=== PATIENT | female | born 1940 | race African-American/Black ===

== ENCOUNTER 2020-06-23 00:13 | Inpatient (IN) | payer MEDICARE ==
[~2020-06-23] VITALS: Ht 170.2 cm; Wt 66.2 kg
[2020-06-23 00:18] VITALS: BP 140/95
[2020-06-23 00:21] VITALS: BP 140/95
[2020-06-23 00:51] LABS: INFLUENZA A ANTIGEN Negative (Negative); INFLUENZA B ANTIGEN Negative (Negative)
[2020-06-23 00:52] LABS: HEMATOCRIT 37.3 % (37.0-47.0); HEMOGLOBIN 12.2 gm/dL (12.0-15.0); MCH 29.1 pg (26.0-34.0); MCHC 32.8 g/dL (28.0-37.0); MCV 88.7 fL (80.0-100.0); MPV 6.7 fl. (7.2-11.1); NUCLEATED RBCS 0 /100WBC; PLATELET COUNT* 210 thou/uL (150-400); RDW-CV 13.4 % (10.5-14.5); WBC 5.4 thou/uL (4.0-11.0)
[2020-06-23 01:06] LABS: CALCIUM 9.3 mg/dL (8.5-10.1); POTASSIUM 3.8 mmol/L (3.5-5.1)
[2020-06-23 01:08] LABS: APTT 22.8 Seconds (25.0-31.3); INR 1.1; PROTIME 11.2 Seconds (9.20-11.50)
[2020-06-23 01:11] LABS: ABSOLUTE BASOPHILS 0.1 thou/uL (0.0-0.2); ABSOLUTE LYMPHOCYTES 2.1 thou/uL (0.8-5.3); ABSOLUTE MONOCYTES 0.6 thou/uL (0.0-1.2); ABSOLUTE NEUTROPHILS 1.7 thou/uL (1.6-8.1); LARGE PLATELETS OCCASIONAL; PLATELET ESTIMATE ADEQUATE; TOXIC GRANULATION 1+
[2020-06-23 01:16] LABS: TOTAL BILIRUBIN 0.4 mg/dL (<0.1-1.0); TOTAL PROTEIN 7.4 g/dL (6.4-8.2)
[2020-06-23 07:00] VITALS: BP 115/60
[2020-06-23 11:00] VITALS: BP 140/84
--- NOTE | 2020-06-23 12:51 | EKG ---
[place] [address] ELECTROCARDIOGRAM REPORT Name: AZULDIEUDONNEHARJEET Room: [place] [address] ADM IN [facility].#: [id number] Admission: 06/23/20 Attend Phys: Pierre Pérez Discharge: Date of : 42 Date of Service: 06/23/20 0009 Report #: [id number] THIS REPORT FOR: //name// [facility] ED Test Date: 2020-06-23 Test Time: 00:09:55 Pat Name: LAURIE LIANG Department: Room: [facility] Gender: F Division Director: [place] : 1940 Requested By: Mickey Eden Order Number: [id number] MD: Chris Wasserman Measurements Intervals [place] Rate: 110 P: 88 NM: 195 QRS: 83 QRSD: 60 T: 81 QT: 321 QTc: 435 Interpretive Statements Sinus tachycardia Right atrial enlargement Consider right ventricular hypertrophy Artifact in lead(s) II,aVR,aVF,V1,V2,V3,V4,V5,V6 No previous ECG available for comparison Electronically Signed On 06-23-2020 12:51:26 PLASTIC PRESS OPERATOR by Chris Wasserman [email or web address] <ELECTRONICALLY SIGNED> By: Chris Wasserman MD, FACC 06/23/20 1251 0009 0009 Chris Wasserman MD, FACC /EPI
[2020-06-23 14:59] VITALS: BP 166/92
[2020-06-23] MEDS ORDERED: LISINOPRIL-HCT1 EACH PO (15:26)
[2020-06-23] MEDS ORDERED: LIPITOR 20 MG T20 M1 PO (15:27)
[2020-06-23] MEDS ORDERED: BREO ELLIPTA 11 EACH INH (15:28)
[2020-06-23] MEDS ORDERED: ALPRAZOLAM XR3 MG PO (15:29)
[2020-06-23 18:45] VITALS: BP 138/90
[2020-06-24] VITALS: BP 116/59
[2020-06-24 01:30] VITALS: BP 124/85
--- NOTE | 2020-06-24 01:30 | NUR ---
RECEIVED REPORT FROM ER WHERE PT HAS BEEN BOARDING. TO ROOM PER BED, NO DISTRESS NOTED. O2 ON AT 2L/NC, NO SOA NOTED. TELEMETRY APPLIED SHOWING ST. SEE ADMISSION ASSESSMENT AND HX. WILL CONT TO MONITOR AND ASSIST NEEDED.
[2020-06-24 01:35] VITALS: BP 116/59
[2020-06-24 05:11] LABS: HEMATOCRIT 37.4 % (37.0-47.0); HEMOGLOBIN 12.2 gm/dL (12.0-15.0); MCH 28.9 pg (26.0-34.0); MCHC 32.7 g/dL (28.0-37.0); MCV 88.4 fL (80.0-100.0); MPV 7.4 fl. (7.2-11.1); RBC 4.23 mil/uL (4.20-5.00); RDW-CV 13.5 % (10.5-14.5); WBC 3.2 thou/uL (4.0-11.0)
[2020-06-24 07:00] LABS: ALBUMIN 3.9 g/dL (3.4-5.0); MAGNESIUM 1.8 mg/dL (1.8-2.4); POTASSIUM 3.8 mmol/L (3.5-5.1); TOTAL BILIRUBIN 0.4 mg/dL (<0.1-1.0); TOTAL PROTEIN 7.4 g/dL (6.4-8.2)
[2020-06-24 07:32] LABS: TROPONIN-I LEVEL 0.07 ng/mL (<0.06)
[2020-06-24 07:45] VITALS: BP 117/84
--- NOTE | 2020-06-24 10:07 | NUR ---
cm completed the initial assessment to discuss d/c planning. pt a&o. pt active and independent w/adls. pt has 2 sons that are involved in pt life and assist where needed. pt lives alone, pt denies hx w/hh or snf. pt uses 2 inhalers at home. cm to cont to follow.
--- NOTE | 2020-06-24 12:54 | 2DMMODE ---
[place] [address] 2 D/M-MODE ECHOCARDIOGRAM Name: DIEUDONNE LIANGHARJEET Room: [address] IN .R.#: [id number] Admission: 06/23/20 Attend Phys: Pierre Pérez Discharge: Date of : 42 Date of Service: 06/24/20 1254 Report #: [id number] THIS REPORT FOR: cc: Leanne Carlson MD, Karla L. MD Blick,Daryl Banerjee MD [facility] ~ APPROVED REPORT Study performed: 06/24/2020 10:51:37 EXAM: Comprehensive 2D, Doppler, and color-flow Echocardiogram Patient Location: Bedside BSA: 1.81 Other Information Study Quality: Technically Limited Indications COPD Dyspnea 2D Dimensions IVSd: 9.78 (7-11mm) LVOT Diam: 22.04 (18-24mm) LVDd: 31.43 mm PWd: 9.50 (7-11mm) Ascending Ao: 27.39 (22-36mm) LVDs: 25.18 (25-40mm) Aortic Root: 28.51 mm Volumes Left Atrial Volume (Systole) LA ESV Index: 14.40 mL/m2 Aortic Valve AoV Peak Ryan.: 1.49 m/s AO Peak Gr.: 8.89 mmHg LVOT Max P.42 mmHg AO Mean Gr.: 5.26 mmHg LVOT Mean P.80 mmHg LVOT Max V: 1.36 m/s AO V2 VTI: 25.91 cm LVOT Mean V: 0.90 m/s MICHELLE (VTI): 3.52 cm2 LVOT V1 VTI: 23.88 cm Mitral Valve E/A Ratio: 0.49 [place] [address] 2 D/M-MODE ECHOCARDIOGRAM Name: LAURIE LIANG Room: [address] IN M.R.#: [id number] Admission: 06/23/20 Attend Phys: Pierre Pérez Discharge: Date of : 42 Date of Service: 06/24/20 1254 Report #: [id number] MV Decel. Time: 219.63 ms MV E Max Ryan.: 0.48 m/s MV PHT: 63.69 ms MVA (PHT): 3.45 cm2 TDI E/Lateral E': 5.33 E/Medial E': 6.00 Medial E' Ryan.: 0.08 m/s Lateral E' Ryan.: 0.09 m/s Pulmonary Valve PV Peak Ryan.: 0.73 m/s PV Peak Gr.: 2.11 mmHg Tricuspid Valve RAP Estimate: 5.00 mmHg TR Peak Gr.: 19.36 mmHg RVSP: 24.36 mmHg PA Pressure: 24.36 mmHg Left Ventricle The left ventricle is normal size. There is normal left ventricular wall thickness. Left ventricular systolic function is normal. The left ventricular ejection fraction is within the normal range. Right Ventricle The right ventricle is normal size. The right ventricular systolic function is normal. Atria The left atrium size is normal. The right atrium size is normal. Aortic Valve The aortic valve is not well visualized. No aortic regurgitation is present. There is no aortic valvular stenosis. Mitral Valve The mitral valve is normal in structure. Trace mitral regurgitation. No evidence of mitral valve stenosis. Tricuspid Valve The tricuspid valve is normal in structure. Trace tricuspid regurgitation. Pulmonic Valve Pulmonic valve is not well visualized. There is no pulmonic [place] [address] 2 D/M-MODE ECHOCARDIOGRAM Name: LAURIE LIANG Room: [address]#: [id number] Admission: 06/23/20 Attend Phys: Pierre Pérez Discharge: Date of : 42 Date of Service: 06/24/20 1254 Report #: [id number] Great Vessels The aortic root is normal in size. IVC is normal in size and collapses >50% with inspiration. Pericardium There is no pericardial effusion. <Conclusion> Left ventricular systolic function is normal. The left ventricular ejection fraction is within the normal range. <ELECTRONICALLY SIGNED> By: Daryl Espino MD, FACC 06/24/20 1254 1254 1254 Daryl Espino MD, FACC /INF
--- NOTE | 2020-06-24 13:43 | CON ---
[address] [address] CONSULTATION Name: GREGG LIANG Room: [address] IN M.R.#: [id number] Admission: 06/23/20 Attend Phys: Pierre Suggs, Discharge: Date of : 42 Report #: [id number] THIS REPORT FOR: //name// cc: Leanne Carlson MD, Karla L. MD ~ DATE OF SERVICE: 06/24/2020 HISTORY OF PRESENT ILLNESS: The patient is a 79-year-old single black female who I was asked to see in the hospital after she complained of chest pain. The patient has a long history of COPD and uses inhalers. She is not very active at this time. She has been told she has had a heart murmur, but has never seen a automatic vulcanizing lead operator. She has had pulmonary function studies done in the past. She currently sees a community service aide. Recently, she has been more shortness of breath. She finally came to the Emergency Room 2 days ago. She has been coughing. Denied any edema or fever. She also notes occasional chest pressure in left side of her chest when she becomes short of breath. It occasionally goes into her left arm. It improves when she belches. She notes occasional rapid heartbeat, but denies any recent syncope. She has felt fatigued recently. PAST MEDICAL HISTORY: She has had a cyst removed from her back. She has a history of hypertension and hyperlipidemia. MEDICATIONS: On admission consisted of a blood pressure pill and cholesterol medications. ALLERGIES: SHE HAS AN ALLERGY TO PENICILLIN. FAMILY HISTORY: Her mother had heart disease. SOCIAL HISTORY: She is , [place] apartment in [place] Quit smoking 50 years ago. Rarely drinks alcohol. REVIEW OF SYSTEMS: She has no history of stroke, although she does have occasional numbness of her left arm and left leg. No history of liver disease, kidney disease, cancer, chronic skin condition or psychiatric illness. PHYSICAL EXAMINATION: GENERAL: Revealed an elderly female lying in bed. She appeared in no distress. VITAL SIGNS: Blood pressure 130/70, pulse is 80, and she is afebrile. HEENT: She was anicteric. Conjunctivae pink. Mucous membranes moist. NECK: Veins do not appear distended. No carotid bruits. CHEST: Revealed expiratory wheezes. CARDIOVASCULAR: Regular rate and rhythm, grade 3 holosystolic murmur at the apex. ABDOMEN: Soft. EXTREMITIES: Had no edema. Posterior tibial pulse 2+ [place] [address] CONSULTATION Name: LAURIE LIANG Room: [address]#: [id number] Admission: 06/23/20 Attend Phys: Pierre Suggs, Discharge: Date of : 42 Report #: [id number] SKIN: Cool and dry. NEUROLOGIC: Nonfocal. RADIOLOGICAL DATA: Her ECG on admission showed sinus tachycardia. There was no significant ST or T-wave change noted. Her workup in the Emergency Room, she had a portable chest x-ray showed normal heart size and clear lung hernadez. She had a CT scan of the chest using contrast that showed no pulmonary embolus, renal cyst or pulmonary scarring. LABORATORY WORK: Sodium 134 and creatinine 1.0. Her troponin was 0.32. BNP 27. D-dimer 0.54. White blood cell count 3.2 and hematocrit 37.4. IMPRESSION AND RECOMMENDATIONS: 1. Chronic obstructive pulmonary disease. 2. Borderline troponin. Atypical chest pain. No ECG changes. Suspect related to pulmonary disease. Would recommend an echocardiogram. I would consider an aspirin a day. 3. Occasional numbness of her left arm and left leg. Suspect neuropathy. 4. Previous tobacco abuse. <ELECTRONICALLY SIGNED> By: Daryl Espino MD, FACC 06/24/20 1343 0843 [id number] Espino MD, FACC /nt
[2020-06-24 14:30] VITALS: BP 122/81
--- NOTE | 2020-06-24 17:54 | NUR ---
ASSESSMENT DOCUMENTED. MEDS GIVEN PER E-MAR. IV PATENT. PT REPORTED HAVING A HEADACHE BUT RESOLVED AFTER BLOOD PRESSURE MEDS. PT ON ROOM AIR THIS SHIFT.
[2020-06-24 20:00] VITALS: BP 88/58
[2020-06-25] VITALS: BP 114/63
[2020-06-25 04:00] VITALS: BP 124/71
[2020-06-25 05:35] LABS: CHOLESTEROL 220 mg/dL (<200); HDL CHOLESTEROL 104 mg/dL (>40); LDL CHOLESTEROL 108 mg/dL (<100); SERUM ASSESSMENT Clear; TC:HDL 2.1 Ratio (Not establshd); TRIGLYCERIDE 42 mg/dL (<150); VLDL 8 mg/dL (<40)
[2020-06-25 07:45] VITALS: BP 121/82
--- NOTE | 2020-06-25 09:39 | EKG ---
[place] [address] ELECTROCARDIOGRAM REPORT Name: LAURIE LIANG Room: [address] ADM IN M.R.#: [id number] Admission: 06/23/20 Attend Phys: Pierre Pérez Discharge: Date of : 42 Date of Service: 06/25/20 0832 Report #: [id number] THIS REPORT FOR: //name// [facility] Test Date: 2020-06-25 Test Time: 08:32:04 Pat Name: LAURIE LIANG Department: Room: [address] Gender: F Sap Consultant: : 1940 Requested By: Daryl Espino Order Number: [id number] Reading MD: Chris Wasserman Measurements Intervals [place] Rate: 87 P: 77 ND: 180 QRS: 72 QRSD: 67 T: 79 QT: 364 QTc: 438 Interpretive Statements Sinus rhythm Right atrial enlargement Consider right ventricular hypertrophy ST elevation, consider early repolarization compared to ECG 06/23/2020 00:09:55 ST (T wave) deviation now present Sinus tachycardia no longer present Electronically Signed On 06-25-2020 9:39:13 ZIGZAG TUNNEL ELASTIC OPERATOR by Chris Wasserman [email or web address] <ELECTRONICALLY SIGNED> By: Chris Wasserman MD, FACC 06/25/2039 1 1 Chris Wasserman MD, FAC /EPI
[2020-06-25 12:00] VITALS: BP 133/72
--- NOTE | 2020-06-25 14:53 | NUR ---
cm discuss home health w/pt. [facility]. [facility] stated they are able to accept pt with a tentative d/c date of 06/26/20. fax orders, h&p, [facility] [phone].
[2020-06-25 17:29] VITALS: BP 116/72
--- NOTE | 2020-06-25 19:30 | NUR ---
ASSESSMENT DOCUMENTED. MEDS GIVEN PER E-MAR. IV PATENT. NO REPORTS OF PAIN THIS SHIFT. NEW IV STARTED BY INFUSION NURSE. PT REPORTED COUGHING, NOTIFIED, ORDERS RECIEVED.
[2020-06-25 20:00] VITALS: BP 125/74
[2020-06-26] VITALS (7 sets, daily range): BP systolic 103–130; BP diastolic 53–80
[2020-06-26] MEDS ORDERED: BROVANA15 MCG/2 M INH (07:50)
[2020-06-26] MEDS ORDERED: MUCUS RLF DM E1 EACH PO (07:50)
[2020-06-26] MEDS ORDERED: PREDNISONE 10 M10 MG PO (07:50)
[2020-06-26] MEDS ORDERED: LEVOFLOXACIN500 MG PO (07:50)
[2020-06-26] MEDS ORDERED: LEVALBUTER0.63 MG/3 INH (07:50)
[2020-06-26] MEDS ORDERED: BENZONATATE100 MG PO (07:50)
[2020-06-26] MEDS ORDERED: PULMICORT0.5 MG/2 M INH (07:50)
[2020-06-26] MEDS ORDERED: NEBULIZER MISCELL (07:51)
--- NOTE | 2020-06-26 13:30 | NUR ---
Anticipate dc tomorrow. Plan home with [facility]
[2020-06-27] VITALS: BP 109/60
[2020-06-27 04:00] VITALS: BP 109/51
--- NOTE | 2020-06-27 07:30 | NUR ---
ASSUMED PT'S CARE @ 1900. PT ALERT AND ORIENTED. VSS ON RA. MEDS GIVEN PER EMAR. PT DENIED PAIN THIS SHIFT. NPO AFTER MIDNIGHT. EGD TODAY. SAW DR'S NOT TO DC LOVENOX AND ASPIRIN LATER IN THE SHIFT. LOVENOX WAS ALREADY GIVEN BEGINNING OF SHIFT IT WAS NOT DC'D. PASSED ON TO DAY RN. PAGED GI DOC TO UPDATE ABOUT LOVENOX. NURSING HAVE NOT HEARD BACK. WILL CONTINUE TO MONITOR.
[2020-06-27 08:00] VITALS: BP 121/63
--- NOTE | 2020-06-27 13:08 | NUR ---
Anticipate dc tomorrow. Pt to have EGD today, GI following. Plan is home with [facility] at ma.
[2020-06-27 18:46] VITALS: BP 120/62
[2020-06-27 20:00] VITALS: BP 103/75
--- NOTE | 2020-06-28 04:56 | NUR ---
ASSESSMENT: PT REMAIN ALERT AND ORIENT TIMES FOUR. PT STATE THAT SHE FEELS SO MUCH BETTER POST ESOPHOGEAL DIALATION. COUGHING HAS DECREASED. PT SLEPT MOST OF THE NIGHT. DENIES PAIN, SOB, AND N/V. POSSIBLE DC TO HOME TODAY. GOOD PROGRESS TOWARDS DC GOALS, WILL CONTINUE TO MONITOR.
[2020-06-28] MEDS ORDERED: PROTONIX40 M2 PO (07:34)
[2020-06-28 07:50] VITALS: BP 140/65
[2020-06-28 09:27] VITALS: BP 140/65
[2020-06-28 15:37] VITALS: BP 102/58
[2020-06-28 16:47] VITALS: BP 140/65
--- NOTE | 2020-06-28 17:00 | NUR ---
PT.TO DISCHARGE HOME TODAY WITH HOME HEALTH. FAXED H&P AND DISCHARGE SUMMARY/MED ORDERS TO [facility] [phone]. THEY WILL SEE PT.MOST LIKELY WEDNESDAY. NOTED NEBULIZER ORDER. FAXED DISCHARE SUMMARY ,ORDER AND FACE SHEET TO [facility] AND ASKED FOR NEB TO BE DELIVERED TO PTS HOME. INFORMED PT.AND SON OF HOME HEALTH AND NEBULIZER ORDERS. SHE KNOWS TO CONTENT DEVELOPER MEDS AT HER PHARMACY.
--- NOTE | 2020-06-28 17:23 | NUR ---
PT GIVEM DISCHARGE INFORMATION, CARE NOTES., PRESCRIPTIONS FAXED TO PHARMACY. IV REMOVED. PT BELONGINGS GATHERED. PT LEFT VIA WHEELCHAIR WITH NURSING STAFF TO HOME WITH HOME HEALTH. FALL RISK PRECAUTIONS IN PLACE. HOURLY ROUNDING COMPLETED.
--- NOTE | 2020-07-02 13:08 | PATH ---
[address] [address] PATHOLOGY RPT PROCEDURE Name: LAURIE ESQUIVEL Room: [address] IN M.R.#: [id number] Admission: 06/23/20 Date of : 42 Discharge: 06/28/20 Report #: [id number] Path Case #: [id number] [facility] Accession Number: [id number] . 01 Material submitted: . PART A: stomach - ANTRAL BIOPSY FOR ERYTHEMA AND EROSION PART B: esophagus - DISTAL ESOPAHGUS BIOPSY. Modifiers: distal . 01 Clinician provided ICD-10: J15.6 J96.01 . 01 Clinical history: . COPD EXACERBATION . 02 Diagnosis: A. Stomach "antrum", endoscopic biopsy: - Gastric antral mucosa with features of reactive gastropathy, vascular ectasia, congestion, and rare fibrin thrombi. - Negative for intestinal metaplasia, dysplasia, and malignancy. - Negative for Helicobacter pylori by routine stains. . B. Esophagus "distal", endoscopic biopsy: - Esophageal squamous and gastric cardia mucosa with reactive changes, consistent with reflux esophagitis, arising in a background of acute and chronic inflammation. - Negative for intestinal metaplasia, dysplasia, and malignancy. (DAMON:randa; 07/01/2020) QTP 07/02/2020 1240 Local . 02 Electronically signed: . Perico Bettencourt MD, Pathologist NPI- [id number] . 01 Gross description: . A. Received in formalin labeled "Laurie Esquivel, antral biopsy for erythema and erosion" are two horne-brown soft tissue fragments measuring in aggregate 0.8 x 0.4 x 0.1 cm. The specimen is submitted entirely in A1. . B. Received in formalin labeled "Laurie Esquivel, distal esophagus" are two horne-brown soft tissue fragments measuring in aggregate 0.6 x 0.5 x 0.1 cm. The specimen is submitted entirely in B1. ([facility] [place]; 06/28/2020) [facility] 06/28/2020 1005 Local . 02 Pathologist provided ICD-10: K20.90, J15.6, J96.01 . 02 [place] [address] PATHOLOGY RPT PROCEDURE Name: LAURIE ESQUIVEL Room: [address] DIS IN M.R.#: [id number] Admission: 06/23/20 Date of : 42 Discharge: 06/28/20 Report #: [id number] Path Case #: [id number] Specimen Comment: A courtesy copy of this report has been sent to [phone] Specimen Comment: Report sent to Performed at: [address], [place], [place] [id number] MD Andre Lundberg MD Phone: [phone] Performed at: 02 [facility] [address], [place], [place] [id number] MD Francisco Javier Eden MD Phone: [phone]
== END 2020-06-28 17:24 | disposition home health service (06) | DRG 177 ==
LOC: M.ERS 00:13 → M.2W 01:47 → M.TBA-ER 01:47 → M.2W 06-24 02:08 → M.3W 06-27 18:55
PROVIDERS: Emergency Medicine Emergency Medical Services; Internal Medicine; Internal Medicine Cardiovascular Disease; ADMIT Family Medicine; ATTEND Family Medicine
PROC: 0DB68ZX Excision of Stomach, Via Natural or Artificial Opening Endoscopic, Diagnostic (ICD-10-PCS; principal; 2020-06-26)
PROC: 0DB38ZX Excision of Lower Esophagus, Via Natural or Artificial Opening Endoscopic, Diagnostic (ICD-10-PCS; principal; 2020-06-26)
PROC: 0D738ZZ Dilation of Lower Esophagus, Via Natural or Artificial Opening Endoscopic (ICD-10-PCS; principal; 2020-06-26)
DX: J15.6 Pneumonia due to other Gram-negative bacteria (principal); J96.01 Acute respiratory failure with hypoxia; R65.11 Systemic inflammatory response syndrome (SIRS) of non-infectious origin with acute organ dysfunction; J44.1 Chronic obstructive pulmonary disease with (acute) exacerbation; J44.0 Chronic obstructive pulmonary disease with (acute) lower respiratory infection; R00.0 Tachycardia, unspecified; R13.10 Dysphagia, unspecified; M54.2 Cervicalgia; I10 Essential (primary) hypertension; E78.5 Hyperlipidemia, unspecified; R77.8 Other specified abnormalities of plasma proteins; K22.2 Esophageal obstruction; K31.89 Other diseases of stomach and duodenum; K44.9 Diaphragmatic hernia without obstruction or gangrene; K21.00 Gastro-esophageal reflux disease with esophagitis, without bleeding; Z20.828 Contact with and (suspected) exposure to other viral communicable diseases; Z79.899 Other long term (current) drug therapy; Z88.0 Allergy status to penicillin

== ENCOUNTER 2021-08-08 10:51 | Emergency (ER) | payer OTHER ==
[~2021-08-08] VITALS: Ht 170.2 cm; Wt 67.1 kg
[~2021-08-08 10:51] MED LIST: ALPRAZOLAM XR3 MG PO; BENZONATATE100 MG PO; BREO ELLIPTA 11 EACH INH; BROVANA15 MCG/2 M INH; LEVALBUTER0.63 MG/3 INH; LEVOFLOXACIN500 MG PO; LIPITOR 20 MG T20 M1 PO; LISINOPRIL-HCT1 EACH PO; MUCUS RLF DM E1 EACH PO; NEBULIZER MISCELL; PREDNISONE 10 M10 MG PO; PROTONIX40 M2 PO; PULMICORT0.5 MG/2 M INH
[2021-08-08 11:45] LABS: ABSOLUTE EOSINOPHILS 0.4 thou/uL (0.0-0.7); ABSOLUTE LYMPHOCYTES 1.8 thou/uL (0.8-5.3); ABSOLUTE MONOCYTES 0.5 thou/uL (0.0-1.2); ABSOLUTE NEUTROPHILS 2.4 thou/uL (1.6-8.1); BASOPHILS 0.6 %; EOSINOPHILS 8.7 %; HEMATOCRIT 39.6 % (37.0-47.0); LYMPHOCYTES 35.5 %; MCH 28.4 pg (26.0-34.0); MCHC 32.9 g/dL (28.0-37.0); MCV 86.4 fL (80.0-100.0); MONOCYTES 9.4 %; MPV 7.3 fl. (7.2-11.1); NUCLEATED RBCS 0 /100WBC; PLATELET COUNT* 263 thou/uL (150-400); POLYS 45.8 %; RBC 4.59 mil/uL (4.20-5.00); WBC 5.2 thou/uL (4.0-11.0)
--- NOTE | 2021-08-08 11:51 | EKG ---
[place] [address] ELECTROCARDIOGRAM REPORT Name: LAURIE LIANG Room: [facility].#: [id number] Admission: Attend Phys: Discharge: Date of : 42 Date of Service: 08/08/21 1106 Report #: [id number] THIS REPORT FOR: //name// [facility] ED Test Date: 2021-08-08 Test Time: 11:06:35 Pat Name: LAURIE LIANG Department: Room: Gender: F Divisional Human Resources Director: : 1940 Requested By: Cruzito Lambert Order Number: [id number] MD: Pedro Bonilla Measurements Intervals [place] Rate: 120 P: 84 NV: 173 QRS: 69 QRSD: 72 T: 85 QT: 322 QTc: 455 Interpretive Statements Sinus tachycardia LAE, consider biatrial enlargement RSR' in V1 or V2, right VCD Probable left ventricular hypertrophy Compared to ECG 06/25/2020 08:32:04 Sinus rate has increased Electronically Signed On 08-08-2021 11:51:21 GAMING FLOOR SUPERVISOR by Pedro Bonilla [email or web address] <ELECTRONICALLY SIGNED> By: Pedro Bonilla MD, [facility] 08/08/21 1151 1106 1106 Pedro Bonilla MD, [facility] /EPI
[2021-08-08 11:56] LABS: CALCIUM 9.2 mg/dL (8.5-10.1); CREATININE 1.4 mg/dL (0.6-1.3); POTASSIUM 4.6 mmol/L (3.5-5.1)
[2021-08-08 12:06] LABS: ALBUMIN 4.5 g/dL (3.4-5.0); TOTAL BILIRUBIN 0.3 mg/dL (<0.1-1.0); TOTAL PROTEIN 8.2 g/dL (6.4-8.2)
[2021-08-08 13:28] LABS: URINE BILIRUBIN NEGATIVE (Negative); URINE BLOOD TRACE (Negative); URINE CLARITY CLEAR; URINE COLOR YELLOW; URINE GLUCOSE-RANDOM NEGATIVE (Negative); URINE KETONES NEGATIVE (Negative); URINE LEUKOCYTES-REFLEX 1+ (Negative); URINE NITRITE-REFLEX NEGATIVE (Negative); URINE PROTEIN NEGATIVE (Negative); URINE UROBILINOGEN 0.2 E.U./dl (0.2-1.0)
[2021-08-08] MEDS ORDERED: LEVOFLOXACIN500 MG PO (13:40)
[2021-08-08] MEDS ORDERED: PREDNISONE 20 M20 M1 PO (13:40)
[2021-08-08 14:22] LABS: BACTERIA-REFLEX None Seen /HPF (None Seen); CASTS None Seen /LPF (None Seen); CRYSTALS None Seen /LPF (None Seen); SQUAMOUS 0-3 Few /LPF (0-3); URINE RBC None Seen /HPF (0-2); URINE WBC-REFLEX 0-5 Rare /HPF (0-5)
[2021-08-08 14:42] VITALS: BP 120/72
== END 2021-08-08 14:43 | disposition home or self-care (01) ==
LOC: M.ERS 10:51
PROVIDERS: Physician Assistant
DX: J18.9 Pneumonia, unspecified organism (principal); Z20.822 Contact with and (suspected) exposure to COVID-19; J44.9 Chronic obstructive pulmonary disease, unspecified; I10 Essential (primary) hypertension; Z79.899 Other long term (current) drug therapy; Z88.0 Allergy status to penicillin

== ENCOUNTER 2021-08-09 00:16 | Observation (INO) | payer OTHER ==
[~2021-08-09] VITALS: Ht 170.2 cm; Wt 67.1 kg
[2021-08-09] VITALS (7 sets, daily range): BP systolic 100–182; BP diastolic 56–118
[~2021-08-09 00:16] MED LIST changes: +PREDNISONE 20 M20 M1 PO
[2021-08-09 00:49] LABS: ABSOLUTE LYMPHOCYTES 0.8 thou/uL (0.8-5.3); ABSOLUTE MONOCYTES 0.1 thou/uL (0.0-1.2); ABSOLUTE NEUTROPHILS 2.2 thou/uL (1.6-8.1); BASOPHILS 0.6 %; EOSINOPHILS 0.4 %; HEMATOCRIT 39.3 % (37.0-47.0); LYMPHOCYTES 25.3 %; MCH 28.2 pg (26.0-34.0); MCV 85.3 fL (80.0-100.0); MONOCYTES 2.4 %; MPV 7.1 fl. (7.2-11.1); NUCLEATED RBCS 0 /100WBC; PLATELET COUNT* 251 thou/uL (150-400); POLYS 71.3 %; RBC 4.61 mil/uL (4.20-5.00); RDW-CV 14.5 % (10.5-14.5); WBC 3.1 thou/uL (4.0-11.0)
[2021-08-09 01:06] LABS: CALCIUM 9.3 mg/dL (8.5-10.1); CREATININE 1.3 mg/dL (0.6-1.3); POTASSIUM 4.6 mmol/L (3.5-5.1)
[2021-08-09 01:17] LABS: ALBUMIN 4.5 g/dL (3.4-5.0); MAGNESIUM 1.9 mg/dL (1.8-2.4); TOTAL BILIRUBIN 0.3 mg/dL (<0.1-1.0); TOTAL PROTEIN 8.3 g/dL (6.4-8.2)
--- NOTE | 2021-08-09 09:32 | EKG ---
[place] [address] ELECTROCARDIOGRAM REPORT Name: AZULDIEUDONNEHARJEET Room: [place] [address] ADM IN [facility]#: [id number] Admission: 08/09/21 Attend Phys: Nataly Quintero Discharge: Date of : 42 Date of Service: 08/09/21 0022 Report #: [id number] THIS REPORT FOR: //name// [facility] ED Test Date: 2021-08-09 Test Time: 00:22:39 Pat Name: LAURIE LIANG Department: Room: [facility] Gender: F Tax Representative: ANKIT : 1940 Requested By: Petrona Silva Order Number: [id number] MD: Sinan Boland Measurements Intervals [place] Rate: 115 P: 78 CO: 186 QRS: 71 QRSD: 73 T: 59 QT: 318 QTc: 440 Interpretive Statements Sinus tachycardia Biatrial enlargement RSR' in V1 or V2, right VCD or RVH Probable left ventricular hypertrophy Compared to ECG 08/08/2021 11:06:35 Right ventricular hypertrophy now present Electronically Signed On 08-09-2021 9:32:20 CONTINUOUS LOFT OPERATOR by Sinan Boland [email or web address] <ELECTRONICALLY SIGNED> By: Troy Boland MD, FACC 08/09/2132 Troy Boland MD, [facility] /EPI
[2021-08-09 11:34] LABS: URINE BILIRUBIN NEGATIVE (Negative); URINE BLOOD NEGATIVE (Negative); URINE CLARITY CLEAR; URINE COLOR YELLOW; URINE GLUCOSE-RANDOM NEGATIVE (Negative); URINE KETONES TRACE (Negative); URINE LEUKOCYTES-REFLEX NEGATIVE (Negative); URINE NITRITE-REFLEX NEGATIVE (Negative); URINE PROTEIN NEGATIVE (Negative); URINE UROBILINOGEN 0.2 E.U./dl (0.2-1.0)
[2021-08-10 00:06] VITALS: BP 100/50
[2021-08-10 04:00] VITALS: BP 109/63
--- NOTE | 2021-08-10 05:50 | NUR ---
ASSUMED CARE OF PT AFTER REPORT AT 1930. PT A&OX4. VSS. PHYSICAL ASSESSMENT COMPLETED AND CHARTED. PT ON RA. PT TRACING SR/ST-HR 130-140 WITH ACTIVITY. PT UPADLIB. PT COMPLAINED OF HEADACHE & WITH EPISODE OF NAUSEA-MED GIVEN PER MAR. CALL LIGHT WITHIN REACH.
[2021-08-10 08:00] VITALS: BP 109/60
[2021-08-10 12:05] VITALS: BP 124/67
[2021-08-10 14:27] LABS: ABSOLUTE LYMPHOCYTES 1.2 thou/uL (0.8-5.3); ABSOLUTE MONOCYTES 0.5 thou/uL (0.0-1.2); ABSOLUTE NEUTROPHILS 3.8 thou/uL (1.6-8.1); BASOPHILS 0.1 %; HEMATOCRIT 34.7 % (37.0-47.0); HEMOGLOBIN 11.4 gm/dL (12.0-15.0); LYMPHOCYTES 21.8 %; MCH 28.6 pg (26.0-34.0); MCHC 32.9 g/dL (28.0-37.0); MCV 86.8 fL (80.0-100.0); MONOCYTES 8.3 %; MPV 6.8 fl. (7.2-11.1); NUCLEATED RBCS 0 /100WBC; PLATELET COUNT* 244 thou/uL (150-400); POLYS 69.8 %; RDW-CV 14.7 % (10.5-14.5); WBC 5.5 thou/uL (4.0-11.0)
[2021-08-10 15:00] VITALS: BP 94/55
[2021-08-10 20:00] VITALS: BP 89/43
[2021-08-11] VITALS: BP 110/50
--- NOTE | 2021-08-11 01:42 | NUR ---
PT ALERT ORIENTED TO SELF, CONFUSED. TURN Q [address] ONE SOFT FORMED BM. [place] MAORI TRACING SR. DIMINISHED ON RA.
--- NOTE | 2021-08-11 02:05 | NUR ---
PT ALERT ORIENED. UP AD ALEJANDRA IN ROOM. ON RA. NS AT 60MLS/HR. INITAL BP LOW. IV FLUIDS OFF. IVF RESTARTED. MN BP BETTER 110/50. ECONOMIC DEVELOPMENT SPECIALIST TRACING SR.
[2021-08-11 04:00] VITALS: BP 123/70
[2021-08-11 04:40] LABS: ABSOLUTE LYMPHOCYTES 1.6 thou/uL (0.8-5.3); ABSOLUTE MONOCYTES 0.3 thou/uL (0.0-1.2); ABSOLUTE NEUTROPHILS 2.7 thou/uL (1.6-8.1); BASOPHILS 0.8 %; EOSINOPHILS 0.8 %; HEMATOCRIT 33.9 % (37.0-47.0); LYMPHOCYTES 34.1 %; MCH 28.2 pg (26.0-34.0); MCHC 32.5 g/dL (28.0-37.0); MCV 86.7 fL (80.0-100.0); MONOCYTES 5.9 %; MPV 7.5 fl. (7.2-11.1); NUCLEATED RBCS 0 /100WBC; PLATELET COUNT* 226 thou/uL (150-400); POLYS 58.4 %; RBC 3.91 mil/uL (4.20-5.00); RDW-CV 14.6 % (10.5-14.5); WBC 4.7 thou/uL (4.0-11.0)
[2021-08-11 08:00] VITALS: BP 119/62
[2021-08-11 12:00] VITALS: BP 143/57
[2021-08-11] MEDS ORDERED: ZPAK PO (12:53)
[2021-08-11] MEDS ORDERED: PREDNISONE 10 M10 MG PO (12:53)
--- NOTE | 2021-08-11 12:53 | NUR ---
THIS RN AGREES WITH THE CHARTING COMPLETED BY MARGARITO KENDALL ON 08/11/21.
[2021-08-11 14:19] VITALS: BP 143/57
--- NOTE | 2021-08-11 15:29 | NUR ---
DISCHARGE ORDERS RECEIVED. DISCHARGE INSTRUCTIONS, CARE NOTES, E SCRIPTS AND FOLLOW UP APPTS GIVEN TO PT. PT COMMUNICATES UNDERSTANDING OF DISCHARGE TEACHING. IV AND BANQUET COOK REMOVED. PT DISCHARGED WITH ALL BELONGINGS AND PAPERWORK VIA WHEELCHAIR WITH NURSING STAFF TO FAMILY OWN PERSONAL VEHICLE.
--- NOTE | 2021-08-11 15:56 | NUR ---
CM ASSESSMENT ASSESSMENT COMPLETED WITH PT. PT ALERT AND ORIENTED. PT LIVES ALONE, BUT WILL BE TRANSPORTED HOME BY DAUGHTER. PT USES A NEBULIZER AT HOME, BUT REPORTS IT IS BROKEN. NEW NEBULIZER ORDERED VIA [employer] [phone]. PT HAS NO HX OF SKILLED OR REHAB SERVICES. PT HAD HH ONE TIME IN PAST FOR UNKNOWN REASON. PT IND WITH ADLS. PT TO [place] HOME.
--- NOTE | 2021-08-14 16:02 | CON ---
[address] [address] CONSULTATION Name: LAURIE LIANG Room: [address] Derrek Wood#: [id number] Admission: 08/09/21 Attend Phys: Griselda Ewing Discharge: 08/11/21 Date of : 42 Report #: [id number] THIS REPORT FOR: cc: Leanne Carlson MD, Karla L. MD Namin, Farid M. MD ~ DATE OF CONSULTATION: 08/10/2021 REASON FOR CONSULT: Abdominal pain, vomiting and report of dark stool. HISTORY OF PRESENT ILLNESS: This is a 80-year-old female with history of COPD, who is well known to me as I had performed upper endoscopy with dilation back on 06/27/2020. The patient reports that she had a colonoscopy and upper endoscopy a week ago at [facility]. She reports that her endoscopy results were essentially unremarkable. She had some rectal pain and some swallowing problem after the procedure and since she had dark stools, this made her come to the hospital. Since hospitalization, she was placed on clear liquids and her hemoglobin was monitored. Her hemoglobin was 13, which was stable and she remained hemodynamically stable. She currently denies any abdominal pain, nausea, vomiting, diarrhea or constipation. She had a bowel movement today, which she believes was normal. She also had a regular diet for lunch. She was able to tolerate it without symptoms of nausea and vomiting. PAST MEDICAL HISTORY: Significant for history of COPD, gastritis, dysphagia secondary to Schatzki ring, status post dilation, pneumonia, esophagitis, dyslipidemia, anxiety. ALLERGIES: SIGNIFICANT TO PENICILLIN. MEDICATIONS: Please refer to MAR. SOCIAL HISTORY: The patient lives at home. Denies tobacco or alcohol use. She used to smoke in the past, but has quit more than a year ago. She may occasionally have alcoholic beverage. FAMILY HISTORY: Noncontributory. ASSESSMENT AND PLAN: The patient with history of chronic obstructive pulmonary disease and imaging suspicious for interstitial infiltrates, which may be secondary to pneumonia. She has been placed on antibiotics. She had reported dark stool, but her hemoglobin has remained stable and after regular diet, she had a normal BM. We will not recommend any further endoscopic evaluation at this time. The patient is [place] [address] CONSULTATION Name: AZULDIEUDONNEHARJEET Room: [address] Derrek Wood#: [id number] Admission: 08/09/21 Attend Phys: Griselda Ewing Discharge: 08/11/21 Date of : 42 Report #: [id number] pneumonia. Once this treatment is completed, we are okay with her discharge. The patient was communicated about this and she is agreeable with it. <ELECTRONICALLY SIGNED> By: Marleny Pacheco MD 08/14/21 1602 1527 1807Marleny Pacheco MD /epifanio
== END 2021-08-11 15:30 | disposition home or self-care (01) ==
LOC: M.ERS 00:16 → M.2W 02:38 → M.TBA-ER 02:38 → M.2W 15:23
PROVIDERS: Emergency Medicine; Internal Medicine; ADMIT Internal Medicine; ATTEND Internal Medicine
DX: J18.9 Pneumonia, unspecified organism (principal); J44.1 Chronic obstructive pulmonary disease with (acute) exacerbation; R10.13 Epigastric pain; R11.2 Nausea with vomiting, unspecified; R53.1 Weakness; K92.1 Melena; R19.5 Other fecal abnormalities; J44.9 Chronic obstructive pulmonary disease, unspecified; R00.0 Tachycardia, unspecified; M47.815 Spondylosis without myelopathy or radiculopathy, thoracolumbar region; Z20.822 Contact with and (suspected) exposure to COVID-19; I12.9 Hypertensive chronic kidney disease with stage 1 through stage 4 chronic kidney disease, or unspecified chronic kidney disease; I51.7 Cardiomegaly; E86.0 Dehydration; N18.9 Chronic kidney disease, unspecified; Z79.899 Other long term (current) drug therapy